=== PATIENT | female | born 1985 | race Two or more races ===

== ENCOUNTER 2025-04-29 09:33 | Emergency (ER) | payer MEDICAID, OTHER ==
[~2025-04-29] VITALS: Ht 165.1 cm; Wt 86.5 kg
[2025-04-29] MEDS ORDERED: KETOROLAC TROMETH 60MG/2ML VIAL IM ONE (10:15)
[2025-04-29] MEDS ORDERED: SODIUM CHLORIDE 0.9% 1,000 ML IV ONE (10:15)
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
[2025-04-29 10:28] LABS: Hematocrit 38.5 % (36.0-46.0); Hemoglobin 12.8 g/dL (12.2-16.2); Mean Corpuscular Hemoglobin 27.9 pg (28.0-32.0); Mean Corpuscular Volume 83.9 fL (80.0-100.0); Nucleated Red Blood Cells % 0.0 %
[2025-04-29] MEDS: KETOROLAC TROMETH 30 MG/ML 1ML VIAL IV ONE (10:34)
[2025-04-29] MEDS: SODIUM CHLORIDE 0.9% 250 ML IV ONE (10:34)
[2025-04-29 10:37] VITALS: PULSE 58; RESP 16; O2SAT 97
[2025-04-29 10:39] LABS: Chloride 110 mmol/L (98-107); Potassium 4.2 mmol/L (3.5-5.1); Sodium 142 mmol/L (136-145)
[2025-04-29 10:40] LABS: Anion Gap 7 (5-15); Carbon Dioxide 25 mmol/L (20-31)
[2025-04-29 10:41] LABS: Calcium 9.0 mg/dL (8.7-10.4)
[2025-04-29 10:45] LABS: Glucose 95 mg/dL (74-106)
[2025-04-29 10:46] LABS: BUN/Creatinine Ratio 19.7 (10.0-20.0); Blood Urea Nitrogen 15 mg/dL (9-23); Magnesium 2.1 mg/dL (1.6-2.6)
[2025-04-29 10:52] LABS: Lipase 70 U/L (12-53)
[2025-04-29] MEDS: IOHEXOL 300 MG/ML 100ML BOTTLE IJ ONE (11:37)
--- NOTE | 2025-04-29 12:38 | DVH ---
EXAM DESCRIPTION: CT CT AB PEL WITH IV CON ONLY CLINICAL HISTORY: Possible umbilical hernia incarcerated COMPARISON: None TECHNIQUE: CT abdomen and pelvis with IV contrast was performed. Coronal and sagittal MPR images were generated. CTDI, DLP = 15.28 / 920.04 Dose reduction technique with one or more of the following methods was performed: Automated exposure control, adjustment of the mA and/or kV according to patient size, use of iterative reconstruction [place] FINDINGS: Lower chest: Clear lung bases. Liver: Homogenous in attenuation. . Biliary: Status post cholycystectomy. No biliary ductal dilatation. Pancreas: No fat stranding or focal lesion. Spleen: Normal in size.. Adrenal glands: No nodularity. Kidneys: Symmetric enhancement. No hydroureteronephrosis. . Bladder: Underdistended, limiting evaluation. Reproductive organs: 5cm low density right adnexal cyst Bowel: No bowel wall thickening or dilatation. Colonic diverticulosis without evidence of diverticuli tis. Normal appendix. Peritoneum: No free fluid. No free air. Vessels: Normal caliber abdominal aorta. Lymph nodes: No suspicious lymph nodes. Soft tissues: Moderate sized fat containing umbilical hernia. Inferior to the umbilical hernia there is a thin walled off fluid collection in the abdominal wall measuring 5.1 x 0.9 x 9.8 cm. Osseous structures: No acute fracture or subluxation. No suspicious osseous lesions. IMPRESSION: 1. Moderate sized fat containing umbilical hernia. No evidence of bowel obstruction 2. Thin walled-off fluid collection in the abdominal wall inferior to the umbilical hernia. 3. 5cm right adnexal cyst. Recommend further evaluation with pelvic ultrasound.
[2025-04-29 12:48] LABS: Urine Protein, UAD 1+ (Negative)
[2025-04-29 17:30] VITALS: BP 122/67; PULSE 76; RESP 20; TEMP 98.2; O2SAT 98
--- NOTE | 2025-04-29 17:52 | DVHINCON2 ---
Date of service: Apr 29, 2025 Allergies: Coded Allergies: NO KNOWN ALLERGIES (Unverified , 04/29/25) Vital Signs Vital Signs Date Time Temp Pulse Resp B/P (MAP) Pulse Ox O2 Delivery O2 Flow Rate FiO2 04/29/25 15:36 98.6 80 16 106/51 (69) 97 98.6 04/29/25 10:37 Room Air* 0 21 Labs/Diagnostic Data Labs Test 04/29/25 10:16 04/29/25 09:45 Range/Units White Blood Count 6.7 4.4-10.8 10^3/uL Red Blood Count 4.59 4.0-5.20 10^6/uL Hemoglobin 12.8 12.2-16.2 g/dL Hematocrit 38.5 36.0-46.0 % Mean Corpuscular Volume 83.9 80.0-100.0 fL Mean Corpuscular Hemoglobin 27.9 L 28.0-32.0 pg Mean Corpuscular Hemoglobin Concent 33.3 32.0-36.0 g/dL Red Cell Distribution Width 13.6 11.8-14.3 % Platelet Count 255 140-450 10^3/uL Mean Platelet Volume 8.5 6.9-10.8 fL Neutrophils (%) (Auto) 40.7 37.0-80.0 % Lymphocytes (%) (Auto) 49.0 10.0-50.0 % Monocytes (%) (Auto) 8.3 0.0-12.0 % Eosinophils (%) (Auto) 1.2 0.0-7.0 % Basophils (%) (Auto) 0.8 0.0-2.0 % Neutrophils # (Auto) 2.7 1.6-8.6 10 ^3/uL Lymphocytes # (Auto) 3.3 0.4-5.4 10 ^3/uL Monocytes # (Auto) 0.6 0-1.3 10 ^3/uL Eosinophils # (Auto) 0.1 0-0.8 10 ^3/uL Basophils # (Auto) 0.1 0-0.2 10 ^3/uL Nucleated Red Blood Cells 0.0 % Sodium Level 142 136-145 mmol/L Potassium Level 4.2 3.5-5.1 mmol/L Chloride Level 110 H 98-107 mmol/L Carbon Dioxide Level 25 20-31 mmol/L Anion Gap 7 5-15 Blood Urea Nitrogen 15 9-23 mg/dL Creatinine 0.76 0.550-1.02 mg/dL Glomerular Filtration Rate Calc 101 >90 mL/min BUN/Creatinine Ratio 19.7 10.0-20.0 Serum Glucose 95 74-106 mg/dL Calcium Level 9.0 8.7-10.4 mg/dL Magnesium Level 2.1 1.6-2.6 mg/dL Lipase 70 H 12-53 U/L Urine Color Light-orange Yellow Urine Clarity Turbid H Clear Urine pH 6.0 5.0-9.0 Urine Specific [place] 1.029 1.001-1.035 Urine Protein 1+ H Negative Urine Ketones Negative Negative Urine Blood 3+ H Negative /uL Urine Nitrite Negative Negative Urine Bilirubin Negative Negative Urine Urobilinogen Normal Negative mg/dL Urine Leukocyte Esterase 1+ Negative /uL Urine RBC 626 0 - 4 /hpf Urine Microscopic WBC 44 H 0-5 /HPF Urine Squamous Epithelial Cells Few <5 /hpf Urine Bacteria Few H None Seen /hpf Urine Mucus Few None Seen Urine Glucose Normal Normal mg/dL Assessment [id number] AFEBRILE VSS MILD ABD PAIN NO CLINICAL OR RADIOLOGIC EVIDENCE OF INCARCERATED/STRANGULATED HERNIA REDUCIBLE RECURRENT UMBILICAL/VENTRAL HERNIA POSSIBLE RESIDUAL SEROMA FROM ABDOMINOPLASTY OPERATION NO INDICATION FOR URGENT SURGERY CONSIDER ELECTIVE SURGERY INDICATED BASED ON ONGOING EVAL PT AGREES NURSE AT BEDSIDE ABD BINDER Plan discussed with: Patient FABRIZIO ANTHONY MD Apr 29, 2025 17:52
== END 2025-04-29 17:54 | disposition home or self-care (01) ==
LOC: ER 09:33
DX: K42.9 Umbilical hernia without obstruction or gangrene (principal); N83.201 Unspecified ovarian cyst, right side; R10.84 Generalized abdominal pain; R18.8 Other ascites
CPT/HCPCS: 36415; 74177; 80048; 81001; 83690; 83735; 85025; 96374; 99285; J1885; J7050; Q9967